=== PATIENT | female | born 1955 | race Caucasian/White ===

== ENCOUNTER → 2023-03-03 | Outpatient (CLI) | payer MEDICARE ==
[~2023-03-03] MED LIST: CELEBREX 200MG200 MG PO; CYMBALTA 60MG60 MG PO; DESYREL 50MG50 MG PO; DUO-KAPS1 CAP PO; ESTRACE 1MG1 MG/TAB PO; FLEXERIL 1010 MG/TAB PO; NORCO 325 MG-51 TAB PO; PROVENTIL0.09 MG/A1 IH; SINGULAIR 110 MG/TAB PO; SYNTHROID 0.0.025 MG PO; TYLENOL 500MG500 MG PO; VITAMIN D31000 I1 PO
== END ==
LOC: MC.RAD 14:50
DX: Z12.31 Encounter for screening mammogram for malignant neoplasm of breast (principal)